=== PATIENT | female | born 2005 | race Caucasian/White ===

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

== ENCOUNTER 2024-01-15 10:04 | Outpatient (AMB) | payer MEDICAID, SELFPAY ==
[2024-01-15 10:11] VITALS: BP 84/55; PULSE 69; BMI 15.6
--- NOTE | 2024-01-15 10:11 | A.OFFVIS_ITS ---
Vital Signs 01/15/24 10:11 Height 5 ft 3 in Weight 88 lb 2.958 oz BMI 15.6 BP 84/55 L Blood Pressure Location Lt brachial Position Sitting Pulse 69 Intake Visit Reasons: Rectal Bleeding Intake Note: Annita presents as a new patient for rectal bleeding. CC: Patient reports rectal bleeding with BMs on and off for about 3 months. She also reports rectal pain, epigastric pain and lower abdominal pain, acid reflux and constipation. 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 She is referred by [facility]. PMX GERD Five months * SURGICAL HISTORY * ALLERGIES: NKDA * [employer] LABS: Laboratory Tests 12/27/23 14:05 WBC 14.9 H Hgb 12.1 Hct 37.4 MCV 78.6 L MCH 25.4 L Plt Count 235 Estimated GFR > 60 Magnesium 1.8 Total Bilirubin 0.5 Direct Bilirubin 0.1 AST 18 ALT 18 Alkaline Phosphatase 57 TODAY'S VISIT Apparently the patient was seen in our ER for abdominal pain and rectal bleeding. She had one episode of a large puddle of blood of blood in the toilet bowel after a painful BM - it hurt rectally with burning and in the rectum. The abdominal pain was across the lower abed and some itn the transverse colon. She received a roid cream but no applicator. She suffers CIC as a rule frequently. Tried Miralax but did not like the taste. Start fiber schmidt pplement benefiber or citrucel bid. Sending proctosol and educated about rectal applicator! Of great concern is fact she has had no appetite since giving and has lost 40 lb! This continues as she has a poor appetite and although she denies any ongoing abdominal pain and the only nausea she describes is with taking her iron this is obviously very concerning. She was breast-feeding initially but has stopped for awhile. She admits she has not been taking the iron every day related to the nausea and stomach upset. I counseled her that she needs to take this with her biggest meal of the day to help protect her stomach and I also encouraged her to continue omeprazole as this will help as well. Getting labs GES, SBFT and US of abd. RAMIREZ 3 weeks. [facility] Medical History GERD (gastroesophageal reflux disease) Surgical History H/O lithotripsy Social History Alcohol intake: never Patient Tobacco Use Status: Never used Tobacco Review of Systems Const Denies fatigue, Denies fever(s), Denies night sweats, Denies poor appetite and Reports weight loss (40 lb since giving ) ENT Reports Normal hearing present, Denies dental pain, Denies dysphagia, Denies hearing loss, Denies mouth pain, Denies odynophagia, Denies throat swelling, Denies tongue swelling and Reports other (Dentition adequate) Card Reports no additional complaints Resp Reports no additional complaints GI Details: Reports abdominal pain, Denies melena, Denies bloating, Reports hematochezia, Reports constipation, Denies GI cramping, Denies dysphagia, Denies excessive flatus, Denies early satiety, Reports heartburn, Denies diarrhea, Reports nausea, Denies odynophagia, Denies vomiting and Denies hematemesis Skin/Breast Reports alopecia (She thought this was just status post estrogen change ), Denies pruritus, Denies lesions, Denies rash and Denies jaundice Neuro Reports Normal hearing present and Denies Abnormal speech present Endo Denies fatigue Aller/Immun Denies throat swelling and Denies tongue swelling Physical Exam Vital Signs: Last Vital Signs Pulse 69 01/15/24 10:11 BP 84/55 L 01/15/24 10:11 BMI result Body Mass Index 15.6 Const General: cooperative, no acute distress, well developed and well groomed Nutritional Appearance: well nourished and underweight Orientation/consciousness: oriented to person, oriented to place and oriented to time Limitations: No language barrier HEENT Head: Yes normocephalic and Yes atraumatic Eyes General: appearance normal, both eyes and all related structures Pupils: Equal, round and reactive pupils present Neck Neck: Yes normal visual inspection and Yes no lymphadenopathy Thyroid: Thyroid normal Resp Effort & Inspection: normal respiratory effort and able to speak in complete sentences Auscultation: clear to auscultation bilaterally Cardio Rate: regular rate Rhythm: regular rhythm Heart sounds: Normal, physiologic split S2 sound present Peripheral pulses: radial pulses present and posterior tibial pulses present GI Inspection: No distended and No Abdominal panniculus present Palpation (GI): Soft to palpation, nontender, no guarding, not rigid and No hepatosplenomegaly present Percussion: Yes normal to percussion Auscultation: normal bowel sounds Rectal Exam - Female: normal sphincter tone, No External hemorrhoid(s) present, No fecal impaction, No Anal fissure(s) present, No Excoriation present (GI), No mass, No tenderness and other (Swollen columns at 06:00 o'clock) Skin General skin exam: no rashes or lesions noted, turgor normal, skin not dry, no jaundice, No spider nevi and no striae Rashes: no rashes Nails: normal Neuro General: oriented to person, oriented to place and oriented to time Cranial nerves: Yes Equal, round and reactive pupils present and Yes Normal hearing present Speech: No Abnormal speech present Extrem General: Yes normal to inspection, No clubbing, No cyanosis and No edema Psych Appearance: grossly normal and well kempt Mental Status: mental status grossly normal Speech and movement: Normal speech and movement present Affect: normal affect Attitude: cooperative Thought process: Normal thought process present and not confabulating Thought content: Normal thought content present Insight: Limited insight present (Psych) Judgement: Limited judgement present (Psych) Assessment & Plan Assessment & Plan (1) Rectal bleeding: Code(s): K62.5 - Hemorrhage of anus and rectum Category: Medical (2) Weight loss: Code(s): R63.4 - Abnormal weight loss Category: Medical Plan Apparently the patient was seen in our ER for abdominal pain and rectal blee ding. She had one episode of a large puddle of blood of blood in the toilet bowel after a painful BM - it hurt rectally with burning and in the rectum. The abdominal pain was across the lower abed and some itn the transverse colon. She received a roid cream but no applicator. She suffers CIC as a rule frequently. Tried Miralax but did not like the taste. Start fiber schmidt pplement benefiber or citrucel bid. Sending proctosol and educated about rectal applicator! Of great concern is fact she has had no appetite since giving and has lost 40 lb! This continues as she has a poor appetite and although she denies any ongoing abdominal pain and the only nausea she describes is with taking her iron this is obviously very concerning. She was breast-feeding initially but has stopped for awhile. She admits she has not been taking the iron every day related to the nausea and stomach upset. I counseled her that she needs to take this with her biggest meal of the day to help protect her stomach and I also encouraged her to continue omeprazole as this will help as well. Getting labs GES, SBFT and US of abd. RAMIREZ 3 weeks. Orders: Orders Lipase Today K62.5 - Hemorrhage of anus and rectum, R63.4 - Abnormal weight loss Complete Blood Count Auto Diff Today K62.5 - Hemorrhage of anus and rectum, R63.4 - Abnormal weight loss H pylori Ag Stool Today K62.5 - Hemorrhage of anus and rectum, R63.4 - Abnormal weight loss US abdomen complete Today K62.5 - Hemorrhage of anus and rectum, R63.4 - Abnormal weight loss NM gastric emptying study Today K62.5 - Hemorrhage of anus and rectum, R63.4 - Abnormal weight loss TSH reflex Free T4 Today K62.5 - Hemorrhage of anus and rectum, R63.4 - Abnormal weight loss Amylase Today K62.5 - Hemorrhage of anus and rectum, R63.4 - Abnormal weight loss Ferritin Today K62.5 - Hemorrhage of anus and rectum, R63.4 - Abnormal weight loss FL upper GI small bowel Today K62.5 - Hemorrhage of anus and rectum, R63.4 - Abnormal weight loss Medications: New hydrocortisone 2.5% (Proctosol HC) BE SURE TO INCLUDE RECTAL APPICATOR!! 1 appl [place] BID 30 grams 6RF hemorrhoids K64.9 - Unspecified hemorrhoids methylcellulose (laxative) (Citrucel) 1,000 mg (2 x 500 mg) PO BID 60 tabs 2RF Refilled omeprazole 20 mg PO DAILY 30 caps 3RF 30 days Discontinued ondansetron Discontinued Reason: Doctor's Order 4 mg PO Q6-8H PRN 14 tabs 0RF nausea and vomiting Coding Level of Care Code New Pt Level 3 (62367) Diagnoses Rectal bleeding K62.5 Weight loss R63.4
== END 2024-01-15 10:58 | disposition home or self-care (01) ==
PROVIDERS: PCP Registered Nurse; Visit Provider Nurse Practitioner
DX: K62.5 Hemorrhage of anus and rectum (principal); R63.4 Abnormal weight loss
CPT/HCPCS: 99203

== ENCOUNTER → 2024-01-15 10:04 | Outpatient (BNVA) | payer MEDICAID, SELFPAY | PROVIDERS: PCP Registered Nurse; Visit Provider Nurse Practitioner | DX: K62.5 Hemorrhage of anus and rectum (principal); K21.9 Gastro-esophageal reflux disease without esophagitis; K59.00 Constipation, unspecified; R10.13 Epigastric pain; R10.30 Lower abdominal pain, unspecified; R63.4 Abnormal weight loss | CPT/HCPCS: 99212 ==

== ENCOUNTER 2024-02-08 13:37 | Outpatient (REF) | payer MEDICAID, SELFPAY ==
[2024-02-08 13:51] LABS: MANUAL DIFF FLAG NO
[2024-02-08 14:52] LABS: Basophils Absolute Auto 0.1 X10*3/uL (0.0-0.2); Basophils Percent Auto 1.6 % (0-2); Eosinophils Absolute Auto 0.1 X10*3/uL (0.0-0.4); Eosinophils Percent Auto 2.4 % (0-4); Hematocrit 39.5 % (37.0-47.0); Hemoglobin 12.7 g/dl (12.0-16.0); Imm Gran Abs Auto 0.01 X10*3/uL (0.00-0.03); Imm Gran Pct Auto 0.3 % (0.0-0.4); Lymphocytes Absolute Auto 1.5 X10*3/uL (1.2-4.9); Lymphocytes Percent Auto 41.3 % (20-40); Mean Corpuscular HGB Conc 32.2 g/dl (31.0-35.0); Mean Corpuscular Hemoglobin 25.3 pg (27.0-33.0); Mean Corpuscular Volume 78.8 fL (80.0-98.0); Mean Platelet Volume 12.4 fL (9.4-12.3); Monocytes Absolute Auto 0.3 X10*3/uL (0.1-1.2); Monocytes Percent Auto 7.8 % (2-11); Neutrophils Absolute Auto 1.7 x10*3/uL (2.0-8.3); Neutrophils Percent Auto 46.6 % (45-73); Platelet Count 214 X10*3/uL (160-400); Red Blood Count 5.01 X10*6/uL (4.20-5.50); Red Cell Distribution Width 15.6 % (11.0-16.0); White Blood Count 3.7 X10*3/uL (4.8-10.8)
[2024-02-08 16:37] LABS: Amylase 85 U/L (28-100); Anion Gap 10 (12-20); Blood Urea Nitrogen 15 mg/dL (9-16); Calcium 8.9 mg/dL (8.4-10.2); Carbon Dioxide 24 mmol/L (22-29); Chloride 109 mmol/L (96-108); Estimated Glomerular Filt Rate > 60; Glucose Random 99 mg/dL (60-115); Iron 79 mcg/dL (30-160); Lipase 32 U/L (8-78); Percent Iron Saturation 27 % (15-50); Potassium 3.7 mmol/L (3.3-5.1); Sodium 139 mmol/L (135-145); Total Iron Binding Capacity 296 mcg/dL (228-428); Unsaturated Iron Binding 217 ug/dL
[2024-02-08 16:52] LABS: Ferritin 10 ng/mL (10-122); TSH reflex Free T4 1.73 uIU/mL (0.32-4.0)
== END 2024-02-08 13:38 | disposition home or self-care (01) ==
LOC: HO.LAB 13:37
PROVIDERS: PCP Registered Nurse; Visit Provider Nurse Practitioner
DX: R63.4 Abnormal weight loss (principal); K62.5 Hemorrhage of anus and rectum; R42 Dizziness and giddiness
CPT/HCPCS: 36415; 80048; 82150; 82728; 83540; 83690; 84443; 85025

== ENCOUNTER 2024-02-15 12:22 | Outpatient (AMB) | payer MEDICAID, SELFPAY ==
--- NOTE | 2024-02-15 12:24 | A.OFFVIS_ITS ---
Vital Signs 02/15/24 12:25 Height 5 ft 3 in Weight 86 lb BMI 15.2 BP 85/53 L Blood Pressure Location Lt brachial Position Sitting Pulse 77 Intake Visit Reasons: Follow up labs Intake Note: Patient follow up for lab results. Patient denies any GI issues for today visit. 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 She had one episode of a large puddle of blood of blood in the toilet bowel after a painful BM - it hurt rectally with burning and in the rectum. The abdominal pain was across the lower abed and some itn the transverse colon. She received a roid cream but no applicator. She suffers CIC as a rule frequently. Tried Miralax but did not like the taste. Start fiber supplement benefiber or citrucel bid. Sending proctosol and educated about rectal applicator! Of great concern is fact she has had no appetite since giving and has lost 40 lb! This continues as she has a poor appetite and although she denies any ongoing abdominal pain and the only nausea she describes is with taking her iron this is obviously very concerning. She was breast-feeding initially but has stopped for awhile. She admits she has not been taking the iron every day related to the nausea and stomach upset. I counseled her that she needs to take this with her biggest meal of the day to help protect her stomach and I also encouraged her to continue omeprazole as this will help as well. Getting labs GES, SBFT and US of abd. ROV 3 weeks. Orders: Orders Lipase Today K62.5 - Hemorrhage of anus and rectum, R63.4 - Abnormal weight loss Complete Blood Count Auto Diff Today K62.5 - Hemorrhage of anus and rectum, R63.4 - Abnormal weight loss H pylori Ag Stool Today K62.5 - Hemorrhage of anus and rectum, R63.4 - Abnormal weight loss US abdomen complete Today K62.5 - Hemorrhage of anus and rectum, R63.4 - Abnormal weight loss NM gastric emptying study Today K62.5 - Hemorrhage of anus and rectum, R63.4 - Abnormal weight loss TSH reflex Free T4 Today K62.5 - Hemorrhage of anus and rectum, R63.4 - A bnormal weight loss Amylase Today K62.5 - Hemorrhage of anus and rectum, R63.4 - Abnormal weight loss Ferritin Today K62.5 - Hemorrhage of anus and rectum, R63.4 - Abnormal weight loss FL upper GI small bowel Today K62.5 - Hemorrhage of anus and rectum, R63.4 - Abnormal weight loss Medications: New hydrocortisone 2.5% (Proctosol HC) BE SURE TO INCLUDE RECTAL APPICATOR!! 1 appl MT BID 30 grams 6RF hemorrhoids K64.9 - Unspecified hemorrhoids methylcellulose (laxative) (Citrucel) 1,000 mg (2 x 500 mg) PO BID 60 tabs 2RF Refilled omeprazole 20 mg PO DAILY 30 caps 3RF 30 days Discontinued ondansetron Discontinued Reason: Doctor's Order 4 mg PO Q6-8H PRN 14 tabs 0RF nausea and vomiting LABS Laboratory Tests 02/08/24 13:50 WBC 3.7 L Hgb 12.7 Hct 39.5 MCV 78.8 L MCH 25.3 L Plt Count 214 Estimated GFR > 60 Ferritin 10 Amylase 85 Lipase 32 TSH 1.73 GES ULTRASOUND OF ABD TODAYS VISIT No change in her sx (or lack of sx) no more bleeding. She has not tried the fiber yet, I reiterate this and write it down for her. Labs relatively unrevealing, but ferritin low so continue to encourage iron oral supplement but with largest meal to avoid stomach upset (which is why she was not taking it). She did receive the proctosol cream. Adding EGD, unconvinced we need colonoscopy unless bleeding returns. She has not yet heard about her US and GES. I will have my staff check into this. Again, relatively few sx but continued wt loss. C/f could be breast feeding. I suggest that she may benefit from a supplement like ensure or boost and I will try getting this ordered for her. Apparently she has been seeing a threshing machine operator who said the same thing and is trying to put her on some sort of antihistamine to improve her appetite. Return office visit at next available [facility] Medical History GERD (gastroesophageal reflux disease) Surgical History H/O lithotripsy Social History Alcohol intake: never Patient Tobacco Use Status: Never used Tobacco Review of Systems Const Denies fatigue, Denies fever(s), Denies night sweats, Reports poor appetite and Reports weight loss Eyes Details: glasses Reports requires corrective lenses ENT Reports Normal hearing present, Denies dental pain, Denies dysphagia, Denies hearing loss, Denies mouth pain, Denies odynophagia, Denies throat swelling, Denies tongue swelling and Reports other (Dentition adequate) Card Reports no additional complaints Resp Reports no additional complaints GI Details: Denies abdominal pain, Denies melena, Denies bloating, Denies hematochezia, Denies constipation, Denies GI cramping, Denies dysphagia, Denies excessive f latus, Denies early satiety, Denies heartburn, Denies diarrhea, Denies nausea, Denies odynophagia, Denies vomiting and Denies hematemesis Skin/Breast Denies pruritus, Denies lesions, Denies rash and Denies jaundice Neuro Reports Normal hearing present and Denies Abnormal speech present Endo Denies fatigue Aller/Immun Denies throat swelling and Denies tongue swelling Physical Exam Vital Signs: Last Vital Signs Pulse 77 02/15/24 12:25 BP 85/53 L 02/15/24 12:25 BMI result Body Mass Index 15.2 Const General: cooperative, no acute distress, well developed and well groomed Nutritional Appearance: well nourished, thin and underweight Orientation/consciousness: oriented to person, oriented to place and oriented to time Limitations: No language barrier HEENT Head: Yes normocephalic and Yes atraumatic Eyes General: appearance normal, both eyes and all related structures Pupils: Equal, round and reactive pupils present Neck Neck: Yes normal visual inspection and Yes no lymphadenopathy Thyroid: Thyroid normal Resp Effort & Inspection: normal respiratory effort and able to speak in complete sentences Auscultation: clear to auscultation bilaterally Cardio Rate: regular rate Rhythm: regular rhythm Heart sounds: Normal, physiologic split S2 sound present Peripheral pulses: radial pulses present and posterior tibial pulses present GI Inspection: No distended and No Abdominal panniculus present Palpation (GI): Soft to palpation, nontender, no guarding, not rigid and No hepatosplenomegaly present Percussion: Yes normal to percussion Auscultation: normal bowel sounds Rectal Exam - Female: deferred Skin General skin exam: no rashes or lesions noted, turgor normal, skin not dry, no jaundice, No spider nevi and no striae Rashes: no rashes Nails: normal Neuro General: oriented to person, oriented to place and oriented to time Cranial nerves: Yes Equal, round and reactive pupils present and Yes Normal hearing present Speech: No Abnormal speech present Extrem General: Yes normal to inspection, No clubbing, No cyanosis and No edema Psych Appearance: grossly normal and well kempt Mental Status: mental status grossly normal Speech and movement: Normal speech and movement present Affect: normal affect Attitude: cooperative Thought process: Normal thought process present and not confabulating Thought content: Normal thought content present Insight: Limited insight present (Psych) Judgement: Limited judgement present (Psych) Results Reviewed Results Reviewed: Laboratory Tests 02/08/24 13:50 WBC 3.7 L Hgb 12.7 Hct 39.5 MCV 78.8 L MCH 25.3 L Plt Count 214 Estimated GFR > 60 Ferritin 10 Amylase 85 Lipase 32 TSH 1.73 Assessment & Plan Assessment & Plan (1) Weight loss: Code(s): R63.4 - Abnormal weight loss Category: Medical (2) Rectal bleeding: Code(s): K62.5 - Hemorrhage of anus and rectum Category: Medical (3) GERD (gastroesophageal reflux disease): Code(s): K21.9 - Gastro-esophageal reflux disease without esophagitis Category: Medical Qualifiers: Esophagitis bleeding: without hemorrhage (4) Adult failure to thrive: Code(s): R62.7 - Adult failure to thrive Category: Medical (5) BMI < 18.5: Code(s): Z68.1 - Body mass index [BMI] 19.9 or less, adult Category: Medical Plan No change in her sx (or lack of sx) no more bleeding. She has not tried the fiber yet, I reiterate this and write it down for her. Labs relatively unrevealing, but ferritin low so continue to encourage iron oral supplement but with largest meal to avoid stomach upset (which is why she was not taking it). She did receive the proctosol cream. Adding EGD, unconvinced we need colonoscopy unless bleeding returns. She has not yet heard about her US and GES. I will have my staff check into this. Again, relatively few sx but continued wt loss. C/f could be breast feeding. I suggest that she may benefit from a supplement like ensure or boost and I will try getting this ordered for her. Apparently she has been seeing a threshing machine operator who said the same thing and is trying to put her on some sort of antihistamine to improve her appetite. Return office visit at next available Orders: Orders EGD - GI Use Only Today K21.9 - Gastro-esophageal reflux disease without esophagitis, R63.4 - Abnormal weight loss Medications: New nutritional supplements (Boost Max) 1 ea PO TID 11,700 mL 3RF R62.7 - Adult failure to thrive, Z68.1 - Body mass index [BMI] 19.9 or less, adult Coding Level of Care Code Est Pt Level 3 (49589) Diagnoses Weight loss R63.4 Rectal bleeding K62.5 GERD (gastroesophageal reflux disease) K21.9 Esophagitis bleeding: without hemorrhage Adult failure to thrive R62.7 BMI < 18.5 Z68.1
[2024-02-15 12:25] VITALS: BP 85/53; PULSE 77; BMI 15.2
== END 2024-02-15 13:29 | disposition home or self-care (01) ==
PROVIDERS: PCP Registered Nurse; Visit Provider Nurse Practitioner
DX: K62.5 Hemorrhage of anus and rectum (principal); R63.4 Abnormal weight loss; K21.9 Gastro-esophageal reflux disease without esophagitis; R62.7 Adult failure to thrive
CPT/HCPCS: 99213

== ENCOUNTER → 2024-02-15 12:22 | Outpatient (BNVA) | payer MEDICAID, SELFPAY | PROVIDERS: PCP Registered Nurse; Visit Provider Nurse Practitioner | DX: K62.5 Hemorrhage of anus and rectum (principal); K21.9 Gastro-esophageal reflux disease without esophagitis; R63.4 Abnormal weight loss; R62.7 Adult failure to thrive; Z68.1 Body mass index [BMI] 19.9 or less, adult | CPT/HCPCS: 99212 ==

== ENCOUNTER 2024-02-21 08:30 | Day surgery (SDC) | payer MEDICAID, SELFPAY ==
[2024-02-21 09:17] VITALS: BMI 15.8
[2024-02-21 09:35] LABS: UPreg QC Valid YES; Urine Pregnancy NEGATIVE (NEGATIVE)
[2024-02-21] MEDS: Lactated Ringers 1,000 ML 80 ML IVCONT (09:47)
--- NOTE | 2024-02-21 09:57 | MHC.SHP ---
Pre-Procedural Eval Section A - 24 Hr Update-Section A only Date of Service: 02/21/24 The patient is an INPATIENT: No The patient has been examined within 24 hours of the surgical procedure. The History & Physical has been completed within 30 days and I have reviewed it.: Yes Section B - Complete if H&P > 30 days Chief Complaint: gerd abd pain Allergies: Allergies Allergy/AdvReac Type Severity Reaction Status Date / Time No Known Allergies Allergy Verified 02/21/24 09:26 Plan Diagnosis/Plan: Unchanged I have reviewed the history and physical and performed a pertinent physical examination on my patient. No changes have occurred unless specified. Time Spent With Patient Time: Total time managing care of this patient today ____ minutes.
--- NOTE | 2024-02-21 10:04 | HO.ANESPROP2 ---
HPI - Anesthesia Eval Consult details Narrative: for EGD PMFSH Active Problems Active Problems: All Active Problems BMI < 18.5 (Acute) Adult failure to thrive (Acute) Weight loss (Acute) Rectal bleeding (Acute) GERD (gastroesophageal reflux disease) (Acute) Past Medical History Medical History GERD (gastroesophageal reflux disease) Patient : No Family History Family history of problems with anesthesia: No Surgical History Surgical History H/O lithotripsy History of Problems with Anesthesia: No Social History Social History Are you a primary home visit field care manager to a significant other at home: No Do you presently have visiting nurse or other home services: No Alcohol intake: never Patient Tobacco Use Status: Never used Tobacco Use of substances other than those prescribed or required for medical reasons: No Have you been hit, kicked, punched, or otherwise hurt by someone within the past year? If so, by whom?: No Are you DNR?: No Advance Directives: No Advance Directives Information Provided: Yes Recently lost weight without trying: No Nutrition Risks: No Nutritional Risk Patient : Yes FDLMP: 02/09/24 Meds Allergies Allergy/AdvReac Type Severity Reaction Status Date / Time No Known Allergies Allergy Verified 02/21/24 09:26 Active Medications: Current Medications Lactated Ringer's (Lr) 1,000 mls @ 80 mls/hr IVCONT .[id number] [id number] Last Admin: 02/21/24 09:47 Dose: 80 mls/hr Exam Height,Weight and Vital Signs: Height 5 ft 3 in Weight 40.37 kg Pertinent Lab Results Pertinent Lab Results: Laboratory Tests 02/21/24 09:10 Urine Test NEGATIVE Airway Mallampati Class: II TM Dist: >3cm Neck ROM: Full Loose/Missing/Broken Teeth: No Heart: ok Lungs: ok Assessment and Plan Assessment Anesthesia Assessment: Anesthesia Plan Discussed and Chart Reviewed Final Anesthetic Review Family History of Problems with Anesthesia: No History of Problems with Anesthesia: No NPO: Yes ASA Class: II Final Preanesthetic Review: No Changes in Pt Med Stat, Meds/Allgs Chart Reviewed, Consent Obtained/Reviewed and Anes Risks/Benef Reviewed Patient Risk: Intermediate Procedure Risk: Intermediate Anesthetic Plan Anesthetic Plan: Agree w/ Assess. and Plan and TIVA Disposition: Standard PACU
[2024-02-21 10:27] VITALS: BP 85/42; PULSE 86; RESP 18; TEMP 36.4; O2SAT 95
--- NOTE | 2024-02-21 10:29 | P.OP_ITS ---
Operative Note Operative Note Date of Service: 02/21/24 Narrative: Procedure: Esophagogastroduodenoscopy Endoscopist: Geno Castellanos MD Indication: Abd pain Anesthesia Provider: Sung Glasgow MD Anesthesia Type: MAC ?? EGD Procedure:?? The procedure, indications, preparation and potential complications were reviewed with the patient, who indicated understanding and gave written informed consent to proceed. A physical exam was performed. The endoscope was introduced through the mouth, and advanced to the second part of duodenum. The mucosa was carefully examined on slow withdrawal of the endoscope. The patient tolerated the procedure well. There were no immediate complications.? ? EGD Findings:? * Esophagus:? Normal mucosa noted in the entire esophagus. The Z line was at 38 cm. Middle and lower esophagus forceps biopsies were obtained to rule out eosinophilic esophagitis. * Stomach:? Normal mucosa was noted in the stomach. Retroflexion was performed in the cardia. Random cold forceps gastric biopsies were taken to rule out H Pylori infection. * Duodenum:? Normal mucosa was noted in the whole of the examined duodenum. Cold forceps biopsies were taken from duodenal bulb and second portion of the duodenum to rule out celiac sprue. ? EGD Impressions:? * Normal esophagus (biopsy) * Normal stomach (biopsy) * Normal duodenum (biopsy) ?? Recommendations:?? * Follow biopsy results. Our office will call or send a letter with results within 7-10 days. * If H pylori +, patient will be prescribed eradication therapy followed by test of cure. * Avoid NSAIDs. Above has been reviewed with the patient.
[2024-02-21 10:42] VITALS: BP 92/60; PULSE 65; RESP 16; TEMP 36.6; O2SAT 100
== END 2024-02-21 11:42 | disposition home or self-care (01) ==
PROVIDERS: Anesthesiology; PCP Registered Nurse; Visit Provider Internal Medicine
PROC: 0DJ08ZZ Inspection of Upper Intestinal Tract, Via Natural or Artificial Opening Endoscopic (ICD-10-PCS; CPT 43235; principal; 2024-02-21 10:00)
DX: R10.9 Unspecified abdominal pain (principal); K21.9 Gastro-esophageal reflux disease without esophagitis; K29.50 Unspecified chronic gastritis without bleeding; K20.90 Esophagitis, unspecified without bleeding; R63.0 Anorexia; R63.4 Abnormal weight loss; R62.7 Adult failure to thrive; Z68.1 Body mass index [BMI] 19.9 or less, adult; E61.1 Iron deficiency; K62.5 Hemorrhage of anus and rectum; K64.9 Unspecified hemorrhoids; K59.04 Chronic idiopathic constipation; Z79.899 Other long term (current) drug therapy; Z87.442 Personal history of urinary calculi
CPT/HCPCS: 43239; 81025; 88305; 88313; 88342; J2003; J2704

== ENCOUNTER → 2024-02-21 08:30 | Outpatient (BNV) | payer MEDICAID, SELFPAY | PROVIDERS: PCP Registered Nurse; Visit Provider Internal Medicine | DX: K21.9 Gastro-esophageal reflux disease without esophagitis (principal) | CPT/HCPCS: 43239 ==

== ENCOUNTER 2024-06-19 10:44 | Outpatient (AMB) | payer MEDICAID, SELFPAY ==
--- NOTE | 2024-06-19 10:50 | MHC.OFFVIS ---
Vital Signs 06/19/24 10:58 Height 5 ft 3 in Weight 90 lb 4 oz BMI 16.0 BP 106/62 Blood Pressure Location Rt brachial Position Sitting Pulse 78 Pulse Source Pulse Oximeter Pulse Oximetry (%) 97 Oxygen Delivery Method Room Air Intake Visit Reasons: s/p EGD Intake Note: ESTABLISHED PATIENT for mgmt of GERD. S/P EGD. CC; C/O GERD persistence despite medication. Pt reporting burning, epigastric pain. Still taking PPI as instructed. Insurance Healthcare Consultant Required: No Accompanied by: Child Allergies No Known Allergies Allergy (Verified 06/19/24 10:58) HPI HPI s/p EGD: Details: Assessment & Plan (1) Weight loss: Code(s): R63.4 - Abnormal weight loss Category: Medical (2) Rectal bleeding: Code(s): K62.5 - Hemorrhage of anus and rectum Category: Medical (3) GERD (gastroesophageal reflux disease): Code(s): K21.9 - Gastro-esophageal reflux disease without esophagitis Category: Medical Qualifiers: Esophagitis bleeding: without hemorrhage (4) Adult failure to thrive: Code(s): R62.7 - Adult failure to thrive Category: Medical (5) BMI < 18.5: Code(s): Z68.1 - Body mass index [BMI] 19.9 or less, adult Category: Medical Plan No change in her sx (or lack of sx) no more bleeding. She has not tried the fiber yet, I reiterate this and write it down for her. Labs relatively unrevealing, but ferritin low so continue to encourage iron oral supplement but with largest meal to avoid stomach upset (which is why she was not taking it). She did receive the proctosol cream. Adding EGD, unconvinced we need colonoscopy unless bleeding returns. She has not yet heard about her US and GES. I will have my staff check into this. Again, relatively few sx but continued wt loss. C/f could be breast feeding. I suggest that she may benefit from a supplement like ensure or boost and I will try getting this ordered for her. Apparently she has been seeing a playground equipment erector who said the same thing and is trying to put her on some sort of antihistamine to improve her appetite. Return office visit at next available Orders: Orders EGD - GI Use Only Today K21.9 - Gastro-esophageal reflux disease without esophagitis, R63.4 - Abnormal weight loss Medications: New nutritional supplements (Boost Max) 1 ea PO TID 11,700 mL 3RF R62.7 - Adult failure to thrive, Z68.1 - Body mass index [BMI] 19.9 or less, adult EGD EGD Findings:? Esophagus:? Normal mucosa noted in the entire esophagus. The Z line was at 38 cm. Middle and lower esophagus forceps biopsies were obtained to rule out eosinophilic esophagitis. Stomach:? Normal mucosa was noted in the stomach. Retroflexion was performed in the cardia. Random cold forceps gastric biopsies were taken to rule out H Pylori infection. Duodenum:? Normal mucosa was noted in the whole of the examined duodenum. Cold forceps biopsies were taken from duodenal bulb and second portion of the duodenum to rule out celiac sprue. ? EGD Impressions:? Normal esophagus (biopsy) Normal stomach (biopsy) Normal duodenum (biopsy)?? Recommendations:?? Follow biopsy results. Our office will call or send a letter with results within 7-10 days. If H pylori +, patient will be prescribed eradication therapy followed by test of cure. Avoid NSAIDs. BIOPSY eceived: 02/21/24 Diagnosis A. Duodenum, biopsy: Duodenal mucosa within normal limits. B. Stomach, random, biopsy: Oxyntic mucosa with mild chronic inactive inflammation; no Helicobacter organisms seen. C. Esophagus, lower, biopsy: Active esophagitis (maximum eosinophil count 47 per high powered field). D. Esophagus, middle, biopsy: Active esophagitis (maximum eosinophil count 4 per high powered field) CORRESPONDENCE On 02/18/24 @ 14:17 Aura Goode Wrote To Bhagat,May demographics, clinical notes, order faxed to [facility] #[phone] On 02/18/24 @ 08:21 Aura Goode Wrote To OlayinkaMay printed + placed on your desk for signature On 02/18/24 @ 07:24 Aura Goode Wrote To Aura Goode no, you're all set. I see it now. On 02/15/24 @ 17:04 Anali Bhagat Wrote To Aura Goode I put in a script for boost, do I have to enter it differently? On 02/15/24 @ 13:21 Aura Goode Wrote To OlayinkaMay can you put in a script for enteral nutrition so I can fax over to medical supply store? On 02/15/24 @ 13:18 Anali Bhagat Wrote To Aura Goode Pt with continued wt loss and BMI <18 (15 actually) please advise.... TODAY'S VISIT She had an episode of severe vomiting in December where she vomited all night long into the machine crater hours. She presented to the ER but they did not come up with any helpful diagnoses her treatments. She found that the omeprazole usually works for her when she has this feeling but it did not work this time nor did famotidine. We review the EGD and she does have active esophagitis so I think we need to get her on a different acid reducing medication. I am going to try lansoprazole and try to get b.i.d. dosing and will progress from there. She continues to struggle with her weight saying it goes up and down. She currently is still underweight with a BMI of 15-16. She is getting boost which I have prescribed and she says she takes it sometimes. I stressed that I really want to see her drinking it every day to make sure she is getting the nutrition that she needs. She also suffers constipation and has not remember to try a fiber supplement so I remind her about that again today. Will also try her on senna 1-2 tabs nightly. Return office visit in 3 months. [facility] Medical History (Updated 06/19/24 @ 16:40 by JOEY Hood) Weight loss GERD (gastroesophageal reflux disease) Surgical History H/O lithotripsy Social History Are you a primary ambulatory care coordinator to a significant other at home: No Do you presently have visiting nurse or other home services: No Alcohol intake: never Patient Tobacco Use Status: Never used Tobacco Review of Systems Const Denies fatigue, Denies fever(s), Denies night sweats, Denies poor appetite and Denies weight loss ENT Reports Normal hearing present, Denies dental pain, Denies dysphagia, Denies hearing loss, Denies mouth pain, Denies odynophagia, Denies throat swelling, Denies tongue swelling and Reports other (Dentition adequate) Card Reports no additional complaints Resp Reports no additional complaints GI Details: Denies abdominal pain, Denies melena, Denies bloating, Denies hematochezia, Denies constipation, Denies GI cramping, Denies dysphagia, Denies excessive flatus, Denies early satiety, Reports heartburn, Denies diarrhea, Reports nausea, Denies odynophagia, Reports vomiting and Denies hematemesis Skin/Breast Denies pruritus, Denies lesions, Denies rash and Denies jaundice Neuro Reports Normal hearing present and Denies Abnormal speech present Endo Denies fatigue Aller/Immun Denies throat swelling and Denies tongue swelling Physical Exam Vital Signs: Last Vital Signs Pulse 78 06/19/24 10:58 BP 106/62 06/19/24 10:58 Pulse Ox 97 06/19/24 10:58 Oxygen Delivery Method Room Air 06/19/24 10:58 BMI result Body Mass Index 16.0 Const General: cooperative, no acute distress, well developed and well groomed Nutritional Appearance: well nourished, thin and underweight Orientation/consciousness: oriented to person, oriented to place and oriented to time Limitations: No language barrier HEENT Head: Yes normocephalic and Yes atraumatic Eyes General: appearance normal, both eyes and all related structures Pupils: Equal, round and reactive pupils present Neck Neck: Yes normal visual inspection and Yes no lymphadenopathy Thyroid: Thyroid normal Resp Effort & Inspection: normal respiratory effort and able to speak in complete sentences Auscultation: clear to auscultation bilaterally Cardio Rate: regular rate Rhythm: regular rhythm Heart sounds: Normal, physiologic split S2 sound present Peripheral pulses: radial pulses present and posterior tibial pulses present GI Inspection: No distended and No Abdominal panniculus present Palpation (GI): Soft to palpation, nontender, no guarding, not rigid and No hepatosplenomegaly present Percussion: Yes normal to percussion Auscultation: normal bowel sounds Rectal Exam - Female: deferred Skin General skin exam: no rashes or lesions noted, turgor normal, skin not dry, no jaundice, No spider nevi and no striae Rashes: no rashes Nails: normal Neuro General: oriented to person, oriented to place and oriented to time Cranial nerves: Yes Equal, round and reactive pupils present and Yes Normal hearing present Speech: No Abnormal speech present Extrem General: Yes normal to inspection, No clubbing, No cyanosis and No edema Psych Appearance: grossly normal and well kempt Mental Status: mental status grossly normal Speech and movement: Normal speech and movement present Affect: normal affect Attitude: cooperative Thought process: Normal thought process present and not confabulating Thought content: Normal thought content present Insight: Limited insight present (Psych) Judgement: Limited judgement present (Psych) Assessment & Plan Assessment & Plan (1) GERD (gastroesophageal reflux disease): Code(s): K21.9 - Gastro-esophageal reflux disease without esophagitis Category: Medical Qualifiers: Esophagitis bleeding: without hemorrhage (2) Erosive esophagitis: Code(s): K22.10 - Ulcer of esophagus without bleeding Category: Medical (3) Constipation: Code(s): K59.00 - Constipation, unspecified Category: Medical (4) Adult failure to thrive: Code(s): R62.7 - Adult failure to thrive Category: Medical (5) BMI < 18.5: Code(s): Z68.1 - Body mass index [BMI] 19.9 or less, adult Category: Medical Plan She had an episode of severe vomiting in December where she vomited all night long into the machine crater hours. She presented to the ER but they did not come up with any helpful diagnoses her treatments. She found that the omeprazole usually works for her when she has this feeling but it did not work this time nor did famotidine. We review the EGD and she does have active esophagitis so I think we need to get her on a different acid reducing medication. I am going to try lansoprazole and try to get b.i.d. dosing and will progress from there. She continues to struggle with her weight saying it goes up and down. She currently is still underweight with a BMI of 15-16. She is getting boost which I have prescribed and she says she takes it sometimes. I stressed that I really want to see her drinking it every day to make sure she is getting the nutrition that she needs. She also suffers constipation and has not remember to try a fiber supplement so I remind her about that again today. Will also try her on senna 1-2 tabs nightly. Return office visit in 3 months. Medications: New lansoprazole 30 mg PO BID 60 caps 3RF K21.9 - Gastro-esophageal reflux disease without esophagitis, K22.10 - Ulcer of esophagus without bleeding sennosides (Senna Laxative) 17.2 mg (2 x 8.6 mg) PO BEDTIME 60 tabs 6RF K59.00 - Constipation, unspecified Discontinued omeprazole Discontinued Reason: Doctor's Order 20 mg PO DAILY 30 days 30 caps 3RF Coding Level of Care Code Est Pt Level 3 (16364) Diagnoses GERD (gastroesophageal reflux disease) K21.9 Esophagitis bleeding: without hemorrhage Erosive esophagitis K22.10 Constipation K59.00 Adult failure to thrive R62.7 BMI < 18.5 Z68.1
[2024-06-19 10:58] VITALS: BP 106/62; PULSE 78; O2SAT 97; BMI 16.0
--- OUTSIDE RECORDS SUMMARY | 2024-06-19 12:10 | XMS_ITS | Clinical Summary ---
Author Organization [employer] Address [address] [facility] [address] [place] [address] Care Team Providers Care Head Mechanic Name Role Phone Jackelyn Oswald FELI Primary Care Provider [phone] Allergies No known active allergies Medications famotidine (Pepcid) 10 MG tablet Take 1 tablet by mouth 2 times daily. 03/07/2023 Active omeprazole (PriLOSEC) [address] capsuleIndicatio ns:Gastroesophag eal reflux disease with esophagitis without hemorrhage Take 1 capsule by mouth Once per day. 12/28/2023 Active cyproheptadine (Periactin) 4 MG tabletIndication s:Underweight Take 1 tablet (4 mg) by mouth at bedtime. 90 tablet 1 04/07/2024 10/05/19 25 Active Active Problems Problem Noted Date Diagnosed Date Dental calculus 10/08/2023 Dental plaque 10/08/2023 History of anemia 10/01/2023 Assessment & Plan (10/01/2023 9:08 PM EDT): - History of mild anemia during - Continues on iron supplements through specialist - Plan to re-check CBC and iron studies Healthcare maintenance 07/26/2023 Overview (07/26/2023): Dental: referral to [facility] Dental placed 07/23/23 Reactive depression 04/15/2022 Overview (04/15/2022): -Denies SI/HI/thoughts of self harm -Not currently following with therapist or psychiatrist. Says has improved/resolved Underweight 08/26/2021 Overview (04/07/2024): -Following with [facility] -02/21/24: EGD completed by Dr. Emanuel Lora. Normal esophagus, stomach, and duodenum. Rec: f/up biopsy results. Biopsy path demonstrated active esophagitis. -Continue cyproheptadine 4mg nightly -Continues with GERD treatment through GI-omeprazole. History of famotidine. Assessment & Plan (04/07/2024 2:35 PM EST): Growth chart reviewed, significant concern for underweight and adult failure to thrive. Her weight is in the 0.03 percentile for age, BMI less than 0.01 percentile. Encouraged to monitor for and avoid food that cause symptoms. 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 Will restart on cyproheptadine nightly. Menorrhagia 05/20/2021 Facioscapulohumeral muscular dystrophy 8 Overview (04/07/2024): -Followed by [facility] - Dr. Momin -[facility] consult April 2023 during - Dr. Julia Frost. Clinical diagnosis of FSHD, and she is at 50% risk for FSHD but testing is nondiagnostic and clinical features borderline. May consider additional testing/eval -Mild rhomboid and trapezius weakness, although pt reports feels as though symptoms are improving Assessment & Plan (04/07/2024 2:35 PM EST): - Evaluated by [facility] muscular dystrophy clinic for probable FSH muscular dystrophy in January 2024 Assessment & Plan (07/17/2022 4:50 PM EDT): Outgoing TC placed to [facility] during appt, they will plan to give pt a call back to schedule appt Encounters Date Type Department Care Team Description 04/25/2024 Population Health Risk Score [facility] ([facility]) Department [address] [place] [address], [place] [phone] Provider, Population Health Generic 04/23/2024 1:00 PM EDT Office Visit [facility] [address] [place] [address] Woo Alcala Dental calculus (Primary Dx) 04/07/2024 11:15 AM EST Office Visit [facility] PED[facility] [address] [place] [address] Jackelyn Oswald, CUSTOMER EXPERIENCE STRATEGIST Underweight (Primary Dx); Facioscapulohumera l muscular dystrophy (CMS/HCC); Dietary counseling; Exercise counseling; Gastroesophageal reflux disease with esophagitis without hemorrhage 04/07/2024 Travel 04/03/2024 Telephone [facility] [address] [place] [address] Tomas Correa MA Chart Prep 03/22/2024 11:40 AM EST Office Visit [facility] [address] [place] [address] Maury Rodriguez MD Nausea and vomiting, unspecified vomiting type (Primary Dx) from Last 3 Months Immunizations Name Administration Dates Next Due DTaP 08/10/2009, 7,06/01/2005,03/15,2004 HPV 9-Valent 11/13/2016,04/06/2016 Hep A, ped/adol, 2 dose 04/06/2016,10/04/2015 Hep B, Adolescent or Pediatric 06/01/2005,2004,2004 Hib (HbOC) 07/27/2006,03/15/2005,2004 IPV 08/10/2009, 6,03/15/2005,12/26 Influenza injectable quadriv alent preservative free 12/25/2022,04/28/2020,03/04/2019,01/24,11/13/2016,04/06/2016 Influenza, IIV3, injectable 01/18/2009, 8 Influenza, Split (incl. damian fied surface antigen) 03/17/2013 MMR 08/10/2009,12/11/2005 Meningococcal MCV4P ACYW-135 04/06/2016 Meningococcal Polysaccharide A,C,Y,W-135 TT Conjugate 04/13/2022 Pfizer Covid-19 Vaccine 12+ 04/04/2021, 2 Pfizer Covid-19 Vaccine 12+ Bivalent 07/17/2022 Pfizer Covid-19 Vaccine 12+ ragini-sucrose (Mirza Cap) 04/04/2021,03/14/2021 Pneumococcal Conjugate PCV 7 12/11/2005, 06/01/2005,03/15/2005,12/26 Pneumococcal, Unspecified 12/11/2005,,03/15/2005,12/26 Tdap 04/06/2016 Varicella 10/04/2015,12/11/2005 Social History Tobacco Use Types Packs/Day Years Used Date Smoking Tobacco: Never Passive Smoke Exposure: Never Smokeless Tobacco: Never Tobacco Cessation:Counseling Given: Not Answered Alcohol Use Standard Drinks/Week Comments Never 0 (1 standard drink = 0.6 oz pur e alcohol) Depression Answer Date Recorded Patient Health Questionnaire-9 Score 6 10/01/2023 Patient Health Questionnaire-9 Score 6 10/01/2023 Last PHQ-9: Questionnaire Data Not on file 0 10/01/2023 Housing Stability Answer Date Recorded What is your housing situation today? I have corina diop 04/07/[address] you li ve. Do you have problems with any of the following? None of the above 04/07/2024 Food Insecurity Answer Date Recorded Within the past 12 months, y ou worried that your food would run out before you got money to buy more: Never True 04/07/2024 Within the past 12 months,th e food you bought just didn't last and you didn't have enough money to get more: Never True Transportation Answer Date Recorded In the past 12 months, has l ack of transportation kept you from medical appts, meetings, work or from getting things needed for daily living? No 04/07/2024 Utilities Answer Date Recorded In the past 12 months, has t he electric, gas, oil or water company threatened to shut off services in your home? No 04/07/2024 Depression Answer Date Recorded Patient Health Questionnaire-2 Score 3 10/01/2023 Internet Access Answer Date Recorded Internet Access Q1 Yes 04/07/2024 Internet Access Q2 Not on file 04/07/2024 Comments No Sex and Gender Information Value Date Recorded Sex Assigned at Female 12/12/2021 10:25 AM EDT Legal Sex Female 10:25 AM EDT Gender Identity Female 12/12/2021 10:25 AM EDT Sexual Orientation Straight 12/12/2021 10 :25 AM EDT Last Filed Vital Signs Vital Sign Reading Time Taken Comments Blood Pressure 110/60 04/23/2024 12:56 PM EDT Pulse 65 04/23/2024 12:56 PM EDT Temperature 36.5 ??C (97.7 ??F) 04/07/2024 11:[address] Respiratory Rate 19 04/07/2024 11:21 AM EST Oxygen Saturation 98% 04/07/2024 11:21 AM EST Inhaled Oxygen Concentration - - Weight 38.7 kg (85 lb 4 oz) 04/07/2024 11:21 AM EST Height 160 cm (5' 3 ) 04/07/2024 11:21 AM EST Body Mass Index 15.1 04/07/2024 11:21 AM EST Plan of Treatment Health Maintenance Due Date Last Done Comments Dental X-Ray: Full Mouth 03/29/2016 03/28/2013 Chlamydia and Gonorrhea Screening 10/25/2023 10/24/2022, 04/01/2022 Fluoride Varnish 04/09/2024 10/08/2023, , 12/14/2020, Additional history exists Dental Oral Exam 04/10/2024 10/08/2023, , 12/14/2020, Additional history exists Influenza Vaccine (#1) 2024 , 04/28/2020, 03/04/2019, Additional history exists Postponed from 2023 (Patient Refused) Depression Screening 09/30/2024 10/01/2023, 10/01/19 Dental X-Ray: Bitewings 10/08/2024 10/08/19, 12/14/2020, 03/20/2018, Additional history exists Dental Prophylaxis 10/25/2024 04/23/2024, 0 10/08/2023, 11/07/2021, Additional history exists Alcohol/Substance Use Screening 04/07/2025 04/07/2024 COVID-19 Vaccine ( season) 2025 07/17/2022, 04/04/2021, 04/04/2021, Additional history exists Postponed from 2023 (Patient Refused) Family Planning (PISQ) 04/07/2025 04/07/2024 SDOH Screening 04/07/2025 04/07/2024 Tobacco Screening 04/23/2025 04/23/2024 DTaP/Tdap/Td Vaccines (8 - Td or Tdap) 05/07/2033 05/08/2023, 04/06/2016, 08/10/2009, Additional history exists Zoster Vaccines (1 of 2) 2054 RSV Patients and Patients Aged 60 years or older (1 - 1-dose 75+ series) 10/15/2079 Hepatitis B Vaccines Completed 06/01/2005, 2004, 2004 Pneumococcal Vaccine: Pediatrics (0 to 5 Years) and At-Risk Patients (6 to 49) Years) Aged Out 12/11/2005, 12/11/2005, 06/01/2005, Additional history exists No longer eligible based on patient's age to complete this topic HIB Vaccines Completed 07/27/2006, 02/2005, 2004 IPV Vaccines Completed 08/10/2009, 05/14, 03/15/2005, Additional history exists MMR Vaccines Completed 08/10/2009, 12/11/2005 Varicella Vaccines Completed 10/04/2015, 12/11/2005 Hepatitis A Vaccines Completed 04/06/2016, 10/04/19 16 HPV Vaccines Completed 11/13/2016, 04/06/2016 Meningococcal Vaccine Completed 04/13/2022, 017 HIV Screening Completed 10/24/2022, 04/05/2022 Hepatitis C Screening Completed 10/24/2022, 023 RSV under 20 months Aged Out No longe r eligible based on patient's age to complete this topic Rotavirus Vaccines Aged Out No longer eligible based on patient's age to complete this topic Procedures Procedure Name Priority Date/Time Associated Diagnosis Comments CASE PRESENTATION, DETAILED AND EXTENSIVE TREATMENT PLANNING Routine 04/23/2024 1:00 PM EDT ORAL HYGIENE INSTRUCTIONS Routine 04/23/2024 1:00 PM EDT PROPHYLAXIS - ADULT Routine 04/23/2024 1 :00 PM EDT POCT INFLUENZA B (ID NOW RAPID MOLECULAR) Routine 03/22/2024 12:31 PM EST Nausea and vomiting, unspecified vomiting type POCT INFLUENZA A (ID NOW RAPID MOLECULAR) Routine 03/22/2024 12:31 PM EST Nausea and vomiting, unspecified vomiting type POCT RAPID COVID ANTIGEN Routine 03/22/2024 12:30 PM EST Nausea and vomiting, unspecified vomiting type POCT GLUCOSE Routine 03/22/2024 12:17 PM EST Nausea and vomiting, unspecified vomiting type BITEWINGS - 4 RADIOGRAPHIC IMAGES Routine 10/08/2023 1:00 PM EDT PERIODIC ORAL EVALUATION - ESTABLISHED PATIENT Routine 10/08/2023 1:00 PM EDT TOPICAL APPLICATION OF FLUORIDE VARNISH Routine 10/08/2023 1:00 PM EDT HEPATITIS C AB W/REFL TO HCV RNA, QN, PCR Routine 10/24/2022 3:45 PM EDT General counseling and advice for contraceptive management HIV ANTIBODY/ANTIGEN ([place] DPH) Routine 10/24/2022 3:45 PM EDT CHLAMYDIA/N. GONORRHOEAE RNA, TMA, UROGENITAL Routine 10/24/2022 3:34 PM EDT General counseling and advice for contraceptive management INTRAORAL - COMPLETE SERIES OF RADIOGRAPHIC IMAGES Routine 03/28/2013 12:00 AM EST from Last 3 Months or Most Recently Relevant to Health Maintenance Results * POCT Rapid Influenza B FROST ID NOW (03/22/2024 12:31 PM EST) Influenza B Negative Negative, Indeterminate [facility] QC Media Lot # [id number] [facility] Lot# Expiration Date [id number] [facility] Swab 03/22/2024 12:3 1 PM EST us Maury Rodriguez MD POINT OF CARE TEST ENTER/EDIT OR DERABLES Final Result Performing Organization Address City/[facility]/ZIP Co de Phone Number [facility] [address] [place] [phone] * POCT Rapid Influenza A FROST ID NOW (03/22/2024 12:31 PM EST) Influenza A Negative Negative, Indeterminate [facility] QC Media Lot # [id number] [facility] Lot# Expiration Date [id number] [facility] Swab 03/22/2024 12:3 1 PM EST Maury Rodriguez MD POINT OF CARE TEST ENTER/EDIT OR DERABLES Final Result Performing Organization Address [facility] Co de Phone Number [facility] [address] [place] [phone] * POCT Rapid Covid-19 BinaxNOW (03/22/2024 12:30 PM EST) [facility] Rapid COVID Ag Negative QC Media Lot # [id number] Lot# Expiration Date [id number] Swab 03/22/2024 12:3 0 PM EST Maury Rodriguez MD POINT OF CARE TEST ENTER/EDIT OR DERABLES Final Result * POCT Glucose (03/22/2024 12:17 PM EST) Pathologist [facility] Glucose Blood, POC 125 60 - 200 mg/dL QC Media Lot # [id number] Lot# Expiration Date [id number] Blood Capillary blood specimen / Unknown 03/22/2024 12:17 PM EST Maury Rodriguez MD POINT OF CARE TEST ENTER/EDIT OR DERABLES Final Result * HIV Ab/Ag (PA CHEIKH) (10/24/2022 3:45 PM EDT) Pathologist [facility] HIV AB/AG Nonreactive Nonreactive [facility] Comment:HIV-1 p24 Ag and/or HIV-1/HIV-2 Ab not detected.A test result that is nonreactive does not exclude thepossibility of exposure to or infection with HIV-1 and/orHIV-2. Nonreactive results in this assay for individualswith prior exposure to HIV-1 and/or HIV-2 may be due toantigen and antibody levels that are below the limit ofdetection of this assay.The [facility] HIV Ag/Ab Combo assay result andsupplemental assay results should be interpreted inconjunction with the patient's clinical presentation,history and other laboratory results. If the results areinconsistent with clinical evidence, additional testing issuggested to confirm the result. 10/24/2022 3:45 PM EDT 10/24/2022 5:25 PM EDT us Manoj Carlos MD LAB BLOOD ORDERABLES Final Resu lt Performing Organization Address [facility] Co de Phone Number [facility] [address] [place] [phone] * Hepatitis C Antibody with Reflex to HCV, RNA, Quantitative, Real-Time PCR (10/24/2022 3:45 PM EDT) [facility] Hepatitis C Antibody Nonreactive Nonreactive [facility] Comment:Antibodies to HCV no t detected; does not exclude early acuteHCV infection. Blood Venous blood specimen / Unknown 10/24/2022 3:45 PM EDT 10/24/2022 5:25 PM EDT us Manoj Carlos MD LAB BLOOD ORDERABLES Final Resu lt Performing Organization Address [facility] Co de Phone Number [facility] [address] [place] [phone] * Chlamydia/N. Gonorrhoeae RNA, TMA, Urogenitial (10/24/2022 3:34 PM EDT) Pathologist [facility] CT PCR NOT DETECTED Not Detect. [facility] Comment:A not detected test result does not exclude the possibilityof infection because test results can be affected byimproper specimen collection, concurrent antibiotic therapy,or the number of organisms in the specimen which may bebelow the sensitivity of the test. As with many diagnostictests, results from the Xpert CT/NG assay should beinterpreted in conjunction with other laboratory andclinical data available to the clinician.Xpert CT/NG performance has not been evaluated in patientsless than 14 years of age. The assay should not be used forthe evaluationof suspected sexual abuse or for other medico-legalindications. Additional testing is recommended in anycircumstance when false positive or false negative resultscould lead to adverse medical, social or psychologicalconsequences. NG PCR NOT DETECTED Not Detect. [facility] Comment:A not detected test result does not exclude the possibilityof infection because test results can be affected byimproper specimen collection, concurrent antibiotic therapy,or the number of organisms in the specimen which may bebelow the sensitivity of the test. As with many diagnostictests, results from the Xpert CT/NG assay should beinterpreted in conjunction with other laboratory andclinical data available to the clinician.Xpert CT/NG performance has not been evaluated in patientsless than 14 years of age. The assay should not be used forthe evaluationof suspected sexual abuse or for other medico-legalindications. Additional testing is recommended in anycircumstance when false positive or false negative resultscould lead to adverse medical, social or psychologicalconsequences. Swab (Vaginal Swab) 10/24/2022 3:34 PM EDT 10/24/2022 6:14 PM EDT Narrative [facility] - 10/25/2022 5:51 AM EDT Vaginal Manoj Carlos MD LAB MICROBIOLOGY - GENERAL [place] Final Result [facility] [address] [place] [phone] from Last 3 Months or Most Recently Relevant to Health Maintenance Insurance [place] [facility] MEDICAID STAND ADULT Care Teams Head Mechanic Relationship Specialty Start Date End Date Jackelyn Oswald FNP [address] [place] [phone] PCP - General Family Medicine 10/04/21
== END 2024-06-19 11:33 | disposition home or self-care (01) ==
LOC: HO.HGI 10:45
PROVIDERS: PCP Registered Nurse; Visit Provider Nurse Practitioner
DX: K21.9 Gastro-esophageal reflux disease without esophagitis (principal); K22.10 Ulcer of esophagus without bleeding; K59.00 Constipation, unspecified; R62.7 Adult failure to thrive
CPT/HCPCS: 99213

== ENCOUNTER → 2024-06-19 10:44 | Outpatient (BNVA) | payer MEDICAID, SELFPAY | PROVIDERS: PCP Registered Nurse; Visit Provider Nurse Practitioner | DX: K21.9 Gastro-esophageal reflux disease without esophagitis (principal); K22.10 Ulcer of esophagus without bleeding; K59.00 Constipation, unspecified; R62.7 Adult failure to thrive | CPT/HCPCS: 99212 ==

== ENCOUNTER 2024-09-16 12:04 | Outpatient (REF) | payer MEDICAID, SELFPAY ==
--- OUTSIDE RECORDS SUMMARY | 2024-09-16 12:51 | XMS_ITS | Encounter Summary ---
Author Organization [employer] Address [address] [facility] 7 [place] [address] Care Team Providers Care Operations Administrative Assistant Name Role Phone Jackelyn Oswald Primary Care Provider [phone] Reason for Visit * Reason Onset Date Comments Lab Orders 09/16/2024 Encounter Details Date Type Department Care Team ([facility] st Contact Info) Description 09/16/2024 Telephone [facility] [address] [place], [place] [phone] Jackelyn Oswald FNP [address] [place], [place] [phone] Lab Orders Social History Tobacco Use Types Packs/Day Years Used Date Smoking Tobacco: Never Passive Smoke Exposure: Never Smokeless Tobacco: Never Alcohol Use Standard Drinks/Week Comments Never 0 [...] Orientation Straight 12/12/2021 10 :25 AM EDT documented as of this encounter Miscellaneous Notes * Telephone Encounter - Soheila Tobin RN - 09/16/2024 10:39 AM EDT Lab request per pt. documented in this encounter Plan of Treatment Upcoming Encounters Date Type Department Care Team ([facility] st Contact Info) Description 09/29/2024 1:15 PM EDT Office Visit [facility] [address] [place] [address] Jackelyn Oswald FNP [address] [place] [address] Scheduled Orders Name Type Priority Associated Diagnoses Orde r Schedule hCG, Total, Quantitative Lab Routine Possible , not yet confirmed Expected: 09/16/2024 (Approximate), Expires: 09/16/2025 documented as of this encounter Visit Diagnoses Diagnosis Possible , not yet confirmed- Primary examination or test, unconfirmed documented in this encounter Additional Health Concerns Assessment Noted Time PHQ-9 Depression Total Score: 6 10/01/19 24 1:59 PM EDT documented as of this encounter Care Teams Operations Administrative Assistant Relationship Specialty Start Date End Date Jakcelyn Oswald FNP [address] [place] [address] PCP - General Family Medicine 10/04/21 documented as of this encounter
[2024-09-16 14:23] LABS: Ferritin 10 ng/mL (10-122)
== END 2024-09-16 12:05 | disposition home or self-care (01) ==
LOC: HO.HHCL 12:04
PROVIDERS: PCP Registered Nurse; Visit Provider Registered Nurse
DX: Z32.00 Encounter for pregnancy test, result unknown (principal); R42 Dizziness and giddiness
CPT/HCPCS: 36415; 82728; 84702

== ENCOUNTER 2024-10-01 13:09 | Outpatient (AMB) | payer MEDICAID, SELFPAY ==
--- NOTE | 2024-10-01 13:12 | A.OFFVIS_ITS ---
Vital Signs 10/01/24 13:31 Height 5 ft 3 in Weight 88 lb 2.958 oz BMI 15.6 BP 81/53 L Blood Pressure Location Lt brachial Position Sitting Pulse 78 Intake Visit Reasons: FTT, GERD, CIC Intake Note: Annita presents in the office as a follow up for FTT, GERD and CIC. CC: She states that nothing much has changed since her prior visit. 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: No Allergies No Known Allergies Allergy (Verified 06/19/24 10:58) HPI HPI FTT, GERD, CIC: Details: Assessment & Plan (1) GERD (gastroesophageal reflux disease): Code(s): K21.9 - Gastro-esophageal reflux disease without esophagitis Category: Medical Qualifiers: Esophagitis bleeding: without hemorrhage (2) Erosive esophagitis: Code(s): K22.10 - Ulcer of esophagus without bleeding Category: Medical (3) Constipation: Code(s): K59.00 - Constipation, unspecified Category: Medical (4) Adult failure to thrive: Code(s): R62.7 - Adult failure to thrive Category: Medical (5) BMI < 18.5: Code(s): Z68.1 - Body mass index [BMI] 19.9 or less, adult Category: Medical Plan She had an episode of severe vomiting in December where she vomited all night long into the automobile mechanic motor hours. She presented to the ER but they did not come up with any helpful diagnoses her treatments. She found that the omeprazole usually works for her when she has this feeling but it did not work this time nor did famotidine. We review the EGD and she does have active esophagitis so I think we need to get her on a different acid reducing medication. I am going to try lansoprazole and try to get b.i.d. dosing and will progress from there. She continues to struggle with her weight saying it goes up and down. She currently is still underweight with a BMI of 15-16. She is getting boost which I have prescribed and she says she takes it sometimes. I stressed that I really want to see her drinking it every day to make sure she is getting the nutrition that she needs. She also suffers constipation and has not remember to try a fiber supplement so I remind her about that again today. Will also try her on senna 1-2 tabs nightly. Return office visit in 3 months. Medications: New lansoprazole 30 mg PO BID 60 caps 3RF K21.9 - Gastro-esophageal reflux disease without esophagitis, K22.10 - Ulcer of esophagus without bleeding sennosides (Senna Laxative) 17.2 mg (2 x 8.6 mg) PO BEDTIME 60 tabs 6RF K59.00 - Constipation, unspecified Discontinued omeprazole Discontinued Reason: Doctor's Order 20 mg PO DAILY 30 days 30 caps 3RF Laboratory Tests 09/16/24 12:10 Ferritin 10 Beta HCG, Quant 596 TODAY'S VISIT FORMERLY [facility], 1928–1983 Medical History Weight loss GERD (gastroesophageal reflux disease) Surgical History (Updated 10/01/24 @ 13:32 by CRISPIN Landon) History of esophagogastroduodenoscopy (EGD) H/O lithotripsy Social History Are you a primary palliative care nurse to a significant other at home: No Do you presently have visiting nurse or other home services: No Alcohol intake: never Patient Tobacco Use Status: Never used Tobacco Review of Systems Const Denies fatigue, Denies fever(s), Denies night sweats, Denies poor appetite and Denies weight loss Eyes Details: g;asses Reports requires corrective lenses ENT Reports Normal hearing present, Denies dental pain, Denies dysphagia, Denies hearing loss, Denies mouth pain, Denies odynophagia, Denies throat swelling, Denies tongue swelling and Reports other (Dentition adequate) Card Reports no additional complaints Resp Reports no additional complaints GI Details: Denies abdominal pain, Denies melena, Denies bloating, Denies hematochezia, Reports constipation, Denies GI cramping, Denies dysphagia, Denies excessive flatus, Denies early satiety, Reports heartburn, Denies diarrhea, Denies nausea, Denies odynophagia, Denies vomiting and Denies hematemesis Skin/Breast Denies pruritus, Denies lesions, Denies rash and Denies jaundice Neuro Reports Normal hearing present and Denies Abnormal speech present Endo Denies fatigue Aller/Immun Denies throat swelling and Denies tongue swelling Physical Exam Vital Signs: Last Vital Signs Pulse 78 10/01/24 13:31 BP 81/53 L 10/01/24 13:31 BMI result Body Mass Index 15.6 Const General: cooperative, no acute distress, well developed and well groomed Nutritional Appearance: well nourished and thin Orientation/consciousness: oriented to person, oriented to place and oriented to time Limitations: No language barrier HEENT Head: Yes normocephalic and Yes atraumatic Eyes General: appearance normal, both eyes and all related structures Pupils: Equal, round and reactive pupils present Neck Neck: Yes normal visual inspection and Yes no lymphadenopathy Thyroid: Thyroid normal Resp Effort & Inspection: normal respiratory effort and able to speak in complete sentences Auscultation: clear to auscultation bilaterally Cardio Rate: regular rate Rhythm: regular rhythm Heart sounds: Normal, physiologic split S2 sound present Peripheral pulses: radial pulses present and posterior tibial pulses present GI Inspection: No distended and No Abdominal panniculus present Palpation (GI): Soft to palpation, nontender, no guarding, not rigid and No hepatosplenomegaly present Percussion: Yes normal to percussion Auscultation: normal bowel sounds Rectal Exam - Female: deferred Skin General skin exam: no rashes or lesions noted, turgor normal, skin not dry, no jaundice, No spider nevi and no striae Rashes: no rashes Nails: normal Neuro General: oriented to person, oriented to place and oriented to time Cranial nerves: Yes Equal, round and reactive pupils present and Yes Normal hearing present Speech: No Abnormal speech present Extrem General: Yes normal to inspection, No clubbing, No cyanosis and No edema Psych Appearance: grossly normal and well kempt Mental Status: mental status grossly normal Speech and movement: Normal speech and movement present Affect: normal affect Attitude: cooperative Thought process: Normal thought process present and not confabulating Thought content: Normal thought content present Insight: Limited insight present (Psych) Judgement: Limited judgement present (Psych) Assessment & Plan Assessment & Plan (1) BMI < 18.5: Code(s): Z68.1 - Body mass index [BMI] 19.9 or less, adult Category: Medical (2) Adult failure to thrive: Code(s): R62.7 - Adult failure to thrive Category: Medical (3) GERD (gastroesophageal reflux disease): Code(s): K21.9 - Gastro-esophageal reflux disease without esophagitis Category: Medical Qualifiers: Esophagitis bleeding: without hemorrhage (4) Erosive esophagitis: Code(s): K22.10 - Ulcer of esophagus without bleeding Category: Medical (5) Constipation: Code(s): K59.00 - Constipation, unspecified Category: Medical Plan History of Present Illness - The patient is a 18-year-old female presenting with follow-up for gastrointestinal issues and . - History of esophageal ulcers previously treated with lansoprazole. - Discontinued lansoprazole due to resolution of acid reflux symptoms. - Currently with an undetermined specific due date; positive test via HCG confirmed. - Iron deficiency anemia noted, managed with ferrous glutanate supplementation. - Maintains weight at approximately 89 lbs, without recent GI symptoms or upset stomach. Nutrition The patient maintains her weight around 89 lbs. She is currently on iron supplementation with ferrous glutanate every Sunday, Sunday, and Sunday to manage anemia. She continues to use nutritional supplementation with the product Boost. There are no reported dietary restrictions or food allergies. The patient is advised to continue her current regimen to address potential nutritional demands of . Plan - Recommend avoiding lansoprazole during due to potential risks; provide famotidine if reflux symptoms develop. 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 - Continue ferrous glutanate supplementation every Sunday, Sunday, and Sunday to effectively manage iron deficiency anemia. Return office visit in 6 months Medications: New famotidine (Pepcid) 40 mg PO DAILY PRN 30 tabs 6RF heartburn On Hold lansoprazole Hold Comment: Doctor's Order 30 mg PO BID 60 caps 3RF K21.9 - Gastro- esophageal reflux disease without esophagitis, K22.10 - Ulcer of esophagus without bleeding Coding Level of Care Code Est Pt Level 3 (95069) Diagnoses BMI < 18.5 Z68.1 Adult failure to thrive R62.7 GERD (gastroesophageal reflux disease) K21.9 Esophagitis bleeding: without hemorrhage Erosive esophagitis K22.10 Constipation K59.00
[2024-10-01 13:31] VITALS: BP 81/53; PULSE 78; BMI 15.6
== END 2024-10-01 13:49 | disposition home or self-care (01) ==
LOC: HO.HGI 13:09
PROVIDERS: PCP Registered Nurse; Visit Provider Nurse Practitioner
DX: Z68.51 Body mass index [BMI] pediatric, less than 5th percentile for age (principal); R62.7 Adult failure to thrive; K21.9 Gastro-esophageal reflux disease without esophagitis; K22.10 Ulcer of esophagus without bleeding; K59.00 Constipation, unspecified
CPT/HCPCS: 99213

== ENCOUNTER → 2024-10-01 13:09 | Outpatient (BNVA) | payer MEDICAID, SELFPAY | PROVIDERS: PCP Registered Nurse; Visit Provider Nurse Practitioner | DX: K21.9 Gastro-esophageal reflux disease without esophagitis (principal); K22.10 Ulcer of esophagus without bleeding; K59.00 Constipation, unspecified; R62.7 Adult failure to thrive | CPT/HCPCS: 99212 ==

== ENCOUNTER 2024-10-05 10:06 | Emergency (ER) | payer MEDICAID, SELFPAY ==
[2024-10-05] VITALS (8 sets, daily range): BP systolic 85–100; BP diastolic 49–62; PULSE 68–82; RESP 16–20; TEMP 36.5–36.9; O2SAT 98–100; BMI 15.6; BMI 14.6
--- NOTE | ~2024-10-05 | US_ITS ---
CLINICAL HISTORY: Pelvic pain, LMP 6 25 --- Additional Notes or Special Instructions: pending quants. ordering will msg US when ready Ultrasound OB first trimester Comparison: None available Findings: Single early intrauterine . The gestational sac is irregular in contour. The pole is difficult to delineate. CRL: 0.6 cm (measured on series 1, image 77, time stamp 1:36:16PM). EGA: 6 weeks and 3 days. Normal yolk sac. FHR: Not definitively visualized. Small subchorionic bleed. Normal uterus and ovaries. Right corpus luteum. Small pelvic free fluid, likely physiologic Impression: Single early intrauterine estimated at 6 weeks and 3 days gestational age by today's ultrasound criteria. Irregular contour of the gestational sac is a poor prognostic indicator in early . Serial beta HCG levels and follow up ultrasound may be helpful. This document has been electronically signed by: Khadijah Romero MD on 10/05/2024 17:09:59
[2024-10-05 10:44] LABS: MANUAL DIFF FLAG NO
[2024-10-05 10:47] LABS: Hematocrit 36.9 % (37.0-47.0); Hemoglobin 12.4 g/dl (12.0-16.0); Imm Gran Abs Auto 0.05 X10*3/uL (0.00-0.03); Imm Gran Pct Auto 0.4 % (0.0-0.4); Lymphocytes Absolute Auto 0.8 X10*3/uL (1.2-4.9); Mean Corpuscular HGB Conc 33.6 g/dl (31.0-35.0); Mean Corpuscular Hemoglobin 26.4 pg (27.0-33.0); Mean Corpuscular Volume 78.5 fL (80.0-98.0); NRBC Abs Auto 0.000 X10*3/uL (0.0-0.012); NRBC Pct Auto 0.0 /100WBC (0.0-0.2); Platelet Count 192 X10*3/uL (160-400); Red Blood Count 4.70 X10*6/uL (4.20-5.50); White Blood Count 12.3 X10*3/uL (4.8-10.8)
--- OUTSIDE RECORDS SUMMARY | 2024-10-05 10:51 | XMS_ITS | Encounter Summary ---
Author Organization [facility] Address [address] [place] [address] Care Team Providers Care Supervisor Dumping Name Role Phone Jackelyn Oswald HANDY WORKER Primary Care Provider [phone] Encounter Details Date Type Department Care Team (Late st Contact Info) Description 10/05/2024 Orders Only GENERIC EXTERNAL DATA DEPARTMENT Provider, Generic External Data Social History Tobacco Use Types Packs/Day Years Used Date Smoking Tobacco: Never Passive Smoke Exposure: Never Smokeless Tobacco: Never Alcohol Use Standard Drinks/Week Comments Never 0 (1 standard drink = 0.6 oz pur e alcohol) Depression Answer Date Recorded Patient Health Questionnaire-9 Score 1 09/29/2024 Patient Health Questionnaire-9 Score 1 09/29/2024 Last PHQ-9: Questionnaire Data Not on file 0 09/29/2024 Housing Stability Answer Date Recorded What is [...] Answer Date Recorded Patient Health Questionnaire-2 Score 0 09/29/2024 Internet Access Answer Date Recorded Internet Access Q1 Yes 04/07/2024 Internet Access Q2 Not on file 04/07/2024 Comments No Sex and Gender Information Value Date Recorded Sex Assigned at Female 12/12/2021 10:25 AM EDT Legal Sex Female 10:25 AM EDT Gender Identity Female 12/12/2021 10:25 AM EDT Sexual Orientation Straight 12/12/2021 10 :25 AM EDT documented as of this encounter Plan of Treatment Not on file documented as of this encounter Procedures Procedure Name Priority Date/Time Associated Diagnosis Comments CBC WITH AUTO DIFFERENTIAL Routine 10/05/2024 10:36 AM EDT documented in this encounter Results * (ABNORMAL) CBC auto differential (10/05/2024 10:36 AM EDT) White Blood Count 12.3(H) 4.8 - 10.8 X10*3/uL [facility] Red Blood Count 4.70 4.20 - 5.50 X10*6/uL [facility] Hemoglobin 12.4 12.0 - 16.0 g/dl [facility] Hematocrit 36.9(L) 37.0 - 47.0 % [facility] Mean Corpuscular Volume 78.5(L) 80.0 - 98.0 fL [facility] Mean Corpuscular Hemoglobin 26.4(L) 27.0 - 33.0 pg [facility] Mean Corpuscular HGB Conc 33.6 31.0 - 35.0 g/dl [facility] Red Cell Distribution Width 15.0 11.0 - 16.0 % [facility] Platelet Count 192 160 - 400 X10*3/uL [facility] Mean Platelet Volume 11.2 9.4 - 12.3 fL [facility] Neutrophils Percent Auto 89.8(H) 45 - 73 % [facility] Imm Gran Pct Auto 0.4 0.0 - 0.4 % [facility] Lymphocytes Percent Auto 6.2(L) 20 - 40 % [facility] Monocytes Percent Auto 3.3 2 - 11 % [facility] Eosinophils Percent Auto 0.0 0 - 4 % [facility] Basophils Percent Auto 0.3 0 - 2 % [facility] NRBC Pct Auto 0.0 0.0 - 0.2 /100WBC [facility] Neutrophils Absolute Auto 11.0(H) 2.0 - 8.3 x10*3/uL [facility] Imm Gran Abs Auto 0.05(H) 0.00 - 0.03 X10*3/uL [facility] Lymphocytes Absolute Auto 0.8(L) 1.2 - 4.9 X10*3/uL [facility] Monocytes Absolute Auto 0.4 0.1 - 1.2 X10*3/uL [facility] Eosinophils Absolute Auto 0.0 0.0 - 0.4 X10*3/uL [facility] Basophils Absolute Auto 0.0 0.0 - 0.2 X10*3/uL [facility] NRBC Abs Auto 0.000 0.0 - 0.012 X10*3/uL [facility] 10/05/2024 10:3 6 AM EDT 10/05/2024 10:42 AM EDT us Generic External Data Provider LAB BLOOD ORDERAB LES Final Result [facility] [address] [place] [address] [phone] documented in this encounter Visit Diagnoses Not on filedocumented in this encounter Additional Health Concerns Assessment Noted Time PHQ-9 Depression Total Score: 1 09/30/19 25 2:05 PM EDT documented as of this encounter Care Teams Supervisor Dumping Relationship Specialty Start Date End Date Jackelyn Oswald FNP [address] [place] [address] PCP - General Family Medicine 10/04/21 documented as of this encounter
[2024-10-05 11:06] LABS: Alanine Aminotransferase 22 U/L (0-31); Albumin Level 4.4 g/dL (3.5-5.0); Alkaline Phosphatase 48 U/L (39-117); Anion Gap 14 (12-20); Aspartate Amino Transferase 24 U/L (5-31); Blood Urea Nitrogen 14 mg/dL (9-16); Calcium 9.1 mg/dL (8.4-10.2); Carbon Dioxide 20 mmol/L (22-29); Chloride 108 mmol/L (96-108); Creatinine Clr Calc Pharmacy 67.7; Estimated Glomerular Filt Rate > 60; Potassium 4.1 mmol/L (3.3-5.1); Sodium 138 mmol/L (135-145); Total Protein 6.7 g/dL (6.5-8.0)
--- NOTE | 2024-10-05 11:30 | ED_ITS ---
HPI - Nausea/Vomiting/Diarrhea General Chief complaint: Nausea/Vomiting/Diarrhea Stated complaint: vomiting Time Seen by Provider: 10/05/24 10:38 Source: patient Mode of arrival: ambulatory Limitations: no limitations History of Present Illness ED Provider: Pippa Ruiz APRN HPI Narrative: This is a 18-year-old female with a history of gastric reflux who is currently about 8 weeks who presents to the ER with complaints of epigastric pain, vomiting and diarrhea since 04:00. Patient attempted to take Tums and famotidine but continued to have vomiting. She also reports some lower pelvic cramping. She denies any vaginal bleeding. She denies fevers or upper respiratory symptoms. She reports that she had a home test that was positive. She has not had an ultrasound to confirm IUP. She is . She goes to [facility] for care but has not seen them for this current . Associated nausea: Yes Related Data Previous Rx's ?Medication ?Instructions ?Recorded phenylephrine 0.25 %-mineral oil 1 appl [place] BID #57 gra ms 12/27/23 14 %-petrolatm 74.9 % rectal ointment (Hemorrhoidal(phenyleph-min oil-petrolat)) hydrocortisone 2.5 % topical cream 1 appl [place] BID hemor rhoids #30 grams 01/15/24 with perineal applicator (Proctosol HC) methylcellulose (laxative) 500 mg 1,000 mg (2 x 500 mg ) PO BID #60 01/15/24 tablet (Citrucel) tabs nutritional supplements 0.09 1 ea PO TID #11,700 mL gram-0.5 kcal/mL oral liquid (Boost Max) sennosides 8.6 mg tablet (Senna 17.2 mg (2 x 8.6 mg) P O BEDTIME 06/19/24 Laxative) #60 tabs lansoprazole 30 mg capsule,delayed 30 mg PO BID #60 ca ps 06/25/24 release Held on 10/01/24. Instructions: Doctor's Order famotidine 40 mg tablet (Pepcid) 40 mg PO DAILY PRN he artburn #30 10/01/24 tabs ondansetron 4 mg disintegrating 4 mg PO Q6H PRN nausea and 10/05/24 tablet vomiting #12 tabs Allergies Allergy/AdvReac Type Severity Reaction Status Date / Time No Known Allergies Allergy Verified 10/05/24 10:24 Review of Systems 2 Review of Systems: Yes all other systems are reviewed and are negative Constitutional: Constitutional: Reports no additional constitutional complaints, Denies body ache(s), Denies chills, Denies fever(s), Denies headache(s) and Denies weakness Eyes: Eyes: Reports no additional eye complaints and Denies change in vision ENT: Reports system reviewed and no additional complaints, except as documented, Denies dizziness, Denies headache(s), Denies nasal congestion, Denies nasal discharge and Denies neck pain Cardiovascular: Cardiovascular: Reports no additional cardiovascular complaints, Denies chest pain, Denies leg edema and Denies dyspnea Respiratory: Respiratory: Reports no additional respiratory complaints, Denies cough and Denies dyspnea Gastrointestinal: Gastrointestinal: Reports no additional gastrointestinal complaints, Reports abdominal pain, Reports diarrhea, Reports nausea and Reports vomiting Genitourinary: Genitourinary: Reports no additional female genitourinary complaints and Denies urinary incontinence Musculoskeletal: Musculoskeletal: Reports no additional musculoskeletal complaints, Denies back pain, Denies arthralgias, Denies joint swelling, Denies neck pain, Denies numbness and Denies tingling Integumentary/Breasts: Skin/Breast: Reports system reviewed and no additional complaints, except as docu and Denies rash Neurologic: Reports system reviewed and no additional complaints, except as documented, Denies Abnormal speech present, Denies dizziness, Denies headache(s), Denies numbness, Denies tingling and Denies weakness PMFSH Past Medical History Attestation statement: The following information was validated with the patient. Source: old records reviewed and nursing notes reviewed Medical History Weight loss GERD (gastroesophageal reflux disease) Surgical History History of esophagogastroduodenoscopy (EGD) H/O lithotripsy Social History Social History Are you a primary acute care physical therapist to a significant other at home: No Do you presently have visiting nurse or other home services: No Alcohol intake: never Patient Tobacco Use Status: Never used Tobacco Smoked in Last 30 Days: No Use of substances other than those prescribed or required for medical reasons: No Advance Directives: No Advance Directives Information Provided: No Patient : Yes Physical Exam 2 Vital Signs: Vital Signs: Last Vital Signs Temp 98.4 F 10/05/24 14:14 Pulse 68 10/05/24 16:41 Resp 16 10/05/24 16:41 BP 89/49 L 10/05/24 16:41 Pulse Ox 100 10/05/24 14:43 O2 Del Method Room Air 10/05/24 14:43 BMI result Body Mass Index 14.6 Const: General: cooperative, healthy appearing, comfortable and no acute distress Orientation/consciousness: patient oriented x3 Limitations: no limitations HEENT: Head: Yes normal to inspection Ears: hearing grossly normal bilaterally General nose exam: Normal external nose present Face and sinus: Yes normal facial exam Mouth: Normal oral and palatal mucosa present Throat: Yes posterior oropharynx normal Eyes: General: appearance normal, both eyes and all related structures P upils: Equal, round and reactive pupils present Neck: Neck: Yes normal visual inspection Chest: Chest palpation & inspection: normal inspection of the chest Resp: Effort & Inspection: normal respiratory effort Auscultation: clear to auscultation bilaterally Cardio: Rate: regular rate Rhythm: regular rhythm Peripheral pulses: P eripheral pulses 2+ throughout GI: Inspection: Yes normal to inspection Palpation (GI): Soft to palpation, Tenderness to palpation present (GI) (mild TTP epigastric/bilateral pelvic) with no rebound tenderness and no guarding Auscultation: normal bowel sounds Back/Spine/Pelvis: Thoracic/Lumbar Spine: thoracic and lumbar spine normal to inspection Skin: General skin exam: no rashes or lesions noted Neuro: General: patient oriented x3, no focal motor deficits and normal sensation to monofilament Cranial nerves: Yes Equal, round and reactive pupils present Cognition (Neuro): normal cognition Speech: No Abnormal speech present Gait exam (Neuro): Normal gait present Motor exam (neuro): 5/5 motor strength present throughout Extrem: General: Yes normal to inspection Course Course Course Narrative: Patient feels much better. She is eating and drinking. Her labs are unremarkable. Her urine shows no signs of infection. Ultrasound shows a single intrauterine early as 6 weeks and 3 days. There is an irregular contour of the gestational sac which may be a poor prognostic indicator. I explained to the patient that her ultrasound showed a very early and she will need to have a repeat ultrasound and lab work done outpatient closely with her primary OBGYN. She has been seen by [facility] and she did call them to inform them of her and is waiting for an appointment. I did recommend that she call them tomorrow to follow-up more urgently. I did review worrisome signs and symptoms of when to return to the emergency room. Comfortable plan for discharge home. Medications Administered Discontinued Medications Generic Name Dose Route Start Last Admin Trade Name Nelly PRN Reason Stop Dose Admin Famotidine 20 mg 10/05/24 11:13 10/05/24 11:24 Famotidine/Pf 20 Mg/2 Ml Vial IVPUSH 10/05/24 11:14 20 mg ONCE ONE Administration Sodium Chloride 1,000 mls @ 999 mls/hr 10/05/24 11:15 10/05/24 12:22 Ns IV 10/05/24 12:15 Infused .Q1H1M MIKAL Infusion Sodium Chloride 1,000 mls @ 999 mls/hr 10/05/24 14:28 10/05/24 15:42 Ns IV 10/05/24 15:28 Infused .Q1H1M STA Infusion Ondansetron HCl 4 mg 10/05/24 11:13 10/05/24 11:24 Ondansetron Hcl 4 Mg/2 Ml Vial IVPUSH 10/05/24 11:14 4 mg ONCE ONE Administration Medical Decision Making Medical Decision Making MDM Narrative: This is a 18-year-old female with a history of gastric reflux who is currently about 8 weeks who presents to the ER with complaints of epigastric pain, vomiting and diarrhea since 04:00. Patient attempted to take Tums and famotidine but continued to have vomiting. She also reports some lower pelvic cramping. She denies any vaginal bleeding. She denies fevers or upper respiratory symptoms. She reports that she had a home test that was positive. She has not had an ultrasound to confirm IUP. She is . She goes to [facility] for care but has not seen them for this current . TTP to epigastrum and B/L pelvic with no rebound or guarding VSS Will obtain labs, UA, US Will give antiemetic, PPI and NS Differential Diagnosis Differential Diagnoses: The differential diagnosis associated with the presentation includes Gastroenteritis, GERD Doubt acute abdomen, ectopic Admission/Observation Consideration of admission/observation: Escalation of care including admission/observation considered Lab Data MDM Lab Attestation statement: I reviewed the patient's lab results. 10/05/24 10:36 10/05/24 10:36 Labs: Lab Results 10/05/24 10/05/24 Range/Units 10:36 11:28 WBC 12.3 H (4.8-10.8) X10*3/uL RBC 4.70 (4.20-5.50) X10*6/uL Hgb 12.4 (12.0-16.0) g/dl Hct 36.9 L (37.0-47.0) % MCV 78.5 L (80.0-98.0) fL MCH 26.4 L (27.0-33.0) pg MCHC 33.6 (31.0-35.0) g/dl RDW 15.0 (11.0-16.0) % Plt Count 192 (160-400) X10*3/uL MPV 11.2 (9.4-12.3) fL Immature Gran % (Auto) 0.4 (0.0-0.4) % Neut % (Auto) 89.8 H (45-73) % Lymph % (Auto) 6.2 L (20-40) % Chilton % (Auto) 3.3 (2-11) % Eos % (Auto) 0.0 (0-4) % Baso % (Auto) 0.3 (0-2) % Lymph # (Auto) 0.8 L (1.2-4.9) X10*3/uL [place]ilton # (Auto) 0.4 (0.1-1.2) X10*3/uL Eos # (Auto) 0.0 (0.0-0.4) X10*3/uL Baso # (Auto) 0.0 (0.0-0.2) X10*3/uL Abs Immat Gran (auto) 0.05 H (0.00-0.03) X10*3/uL Absolute Neuts (auto) 11.0 H (2.0-8.3) x10*3/uL Absolute Nucleated RBC 0.000 (0.0-0.012) X10*3/uL Nucleated RBC % (auto) 0.0 (0.0-0.2) /100WBC Sodium 138 (135-145) mmol/L Potassium 4.1 (3.3-5.1) mmol/L Chloride 108 (96-108) mmol/L Carbon Dioxide 20 L (22-29) mmol/L Anion Gap 14 (12-20) BUN 14 (9-16) mg/dL Creatinine 0.79 (0.5-1.4) mg/dL Estim Creat Clear Calc 67.7 Estimated GFR > 60 Random Glucose 124 H (60-115) mg/dL Calcium 9.1 (8.4-10.2) mg/dL Total Bilirubin 0.3 (0.0-1.0) mg/dL AST 24 (5-31) U/L ALT 22 (0-31) U/L Alkaline Phosphatase 48 (39-117) U/L Total Protein 6.7 (6.5-8.0) g/dL Albumin 4.4 (3.5-5.0) g/dL Beta HCG, Quant 57770 mIU/mL Urine Color Yellow Urine Appearance Turbid Urine pH >= 9.0 (5.0-9.0) Ur Specific Calvin 1.025 (1.005-1.025) Urine Protein 30 (1+) H (Neg-Trace) mg/dL Urine Glucose (UA) Negative (Negative) mg/dL Urine Ketones Negative (Negative) mg/dL Urine Blood Negative (Negative) Urine Nitrite Negative (Negative) Ur Leukocyte Esterase Negative (Negative) Urine RBC 0-2 (0-2) /HPF Urine WBC 0-5 (0-5) /HPF Ur Squamous Epith Cells 3-5 (0-2) /HPF Other Crystals Present Urine Bacteria Trace (None Seen) Hyaline Casts 3-5 (0-2) /LPF Granular Casts Present Urine Test POSITIVE H (NEGATIVE) Independent Interpretation I performed an independent interpretation of an: Ultrasound Interpretation: I independently viewed the ultrasound agree with the radiology report Radiology Impression Discussion of test interpretation with radiology: I have reviewed the radiologist's reading. Radiologist Impression: [address] [address] Ultrasound Report Signed Patient: Annita Murcia MR#: [id number] : 2005 Acct:[id number] Age/Sex: 18 / F ADM Date: 10/05/24 Loc: HO.ED Attending Dr: Ordering Physician: Pippa Ruiz NP Date of Service: 10/05/24 Procedure(s): US OB <= 14 weeks fetus Accession Number(s): [id number] cc: Pippa Ruiz NP; Jackelyn Oswald RAT CULTURIST~ CLINICAL HISTORY: Pelvic pain, LMP 6 25 --- Additional Notes or Special Instructions: pending quants. ordering will msg US when ready Ultrasound OB first trimester Comparison: None available Findings: Single early intrauterine . The gestational sac is irregular in contour. The pole is difficult to delineate. CRL: 0.6 cm (measured on series 1, image 77, time stamp 1:36:16PM). EGA: 6 weeks and 3 days. Normal yolk sac. FHR: Not definitively visualized. Small subchorionic bleed. Normal uterus and ovaries. Right corpus luteum. Small pelvic free fluid, likely physiologic Impression: Single early intrauterine estimated at 6 weeks and 3 days gestational age by today's ultrasound criteria. Irregular contour of the gestational sac is a poor prognostic indicator in early . Serial beta HCG levels and follow up ultrasound may be helpful. This document has been electronically signed by: Khadijah Romero MD on 10/05/2024 17:09:59 Independent Historian Clinical information obtained from an independent historian. History obtained from or confirmed by: Spouse Discharge Plan Discharge Clinical Impression: Patient Disposition: Home, Self-Care Instructions: (ED) Additional Instructions: Your blood work is reassuring. Your ultrasound shows that you are about 6 weeks . It is a very early and we do not see all of the parts of the at this point. It is recommended that you have repeat imaging and blood work done by your OBGYN Your US (Impression: Single early intrauterine estimated at 6 weeks and 3 days gestational age by today's ultrasound criteria. Irregular contour of the gestational sac is a poor prognostic indicator in early . Serial beta HCG levels and follow up ultrasound may be helpful.) Seek care in the emergency room if you develop severe abdominal pain or vaginal bleeding Prescriptions: New ondansetron 4 mg tablet,disintegrating 4 mg PO Q6H PRN (Reason: nausea and vomiting) Qty: 12 0RF No Action lansoprazole 30 mg capsule,delayed release(DR/EC) 30 mg PO BID Qty: 60 3RF Hemorrhoidal(PE-min oil-lester) 0.25-14-74.9 % ointment 1 appl WA BID Qty: 57 0RF hydrocortisone [Proctosol HC] 2.5 % cream with perineal applicator 1 appl WA BID Qty: 30 6RF Rx Instructions: BE SURE TO INCLUDE RECTAL APPICATOR!! Citrucel 500 mg tablet 1,000 mg PO BID Qty: 60 2RF Boost Max 0.09 gram- 0.5 kcal/mL liquid 1 ea PO TID Qty: 37465 3RF sennosides [Senna Laxative] 8.6 mg tablet 17.2 mg PO BEDTIME Qty: 60 6RF famotidine [Pepcid] 40 mg tablet 40 mg PO DAILY PRN (Reason: heartburn) Qty: 30 6RF Referrals: [facility] [employer], [place] [Outside] Print Language: Citizen Of [place]
[2024-10-05 11:49] LABS: Appearance Urine Turbid; Glucose Urine UA Negative (Negative); PH >= 9.0 (5.0-9.0); Specific Gravity - Urine 1.025 (1.005-1.025); UMIC TRIGGER UACC YES; UPreg QC Valid YES
[2024-10-05 12:03] LABS: Other Crystals Urine Present
--- NOTE | 2024-10-05 12:19 | PC.NURSE ---
Called lab, spoke to Lela builder's labourer inquiring about beta HCG, shows as completed in but no results visible - spec is still pending at this time per Lela.
--- NOTE | 2024-10-05 14:37 | PC.NURSE ---
Provider Pippa made aware of pt's BP, another liter order, patient given food.
== END 2024-10-05 18:06 | disposition home or self-care (01) ==
PROVIDERS: Emergency Provider Emergency Medicine; PCP Registered Nurse
DX: R11.10 Vomiting, unspecified (principal); R19.7 Diarrhea, unspecified; R10.13 Epigastric pain; Z33.1 Pregnant state, incidental
CPT/HCPCS: 36415; 76801; 80053; 81001; 81025; 84702; 85025; 96361; 96374; 96375; 99284; J1308; J2405

== ENCOUNTER → 2024-10-05 11:13 | Outpatient (BNV) | payer MEDICAID, SELFPAY | PROVIDERS: Emergency Provider Emergency Medicine; PCP Registered Nurse; Visit Provider Radiology Diagnostic Radiology | DX: Z34.91 Encounter for supervision of normal pregnancy, unspecified, first trimester (principal); Z3A.01 Less than 8 weeks gestation of pregnancy | CPT/HCPCS: 76801 ==